=== PATIENT | female | born 1950 | race Caucasian/White ===

== ENCOUNTER 2018-01-11 15:15 | Outpatient (RCR) | payer MEDICARE, OTHER, SELFPAY ==
--- NOTE | 2017-11-23 16:53 | PT.OTN ---
Current Diagnoses Stiffness of right knee, not elsewhere classified (11/23/17) Other abnormalities of gait and mobility (11/23/17) Weakness (11/23/17) Unspecified fracture of shaft of unspecified tibia, subsequent encounter for closed fracture with routine healing (11/23/17) Other specified postprocedural states (11/23/17) Transition note: On November 17, 2017 our therapy services consisting of Speech, Occupational, and Physical Therapy transitioned from the [employer] electronic documentation system to a new [employer] electronic documentation system.?? All documentation prior to November 17 can be found under [employer] saved data. From November 17 forward all medical record documentation will be in [employer] 6.1.
--- NOTE | 2017-11-23 17:59 | PT.OTN ---
Current Diagnoses Stiffness of right knee, not elsewhere classified (11/23/17) Other abnormalities of gait and mobility (11/23/17) Weakness (11/23/17) Unspecified fracture of shaft of unspecified tibia, subsequent encounter for closed fracture with routine healing (11/23/17) Other specified postprocedural states (11/23/17) Physical Therapy Treatment Note PT-OP-A Visit Information Start: 11/23/17 17:44 Freq: Status: Active Protocol: Activity Type Activity Date Activity User E-Sign Co-Sign Detail Recorded Client Recorded Date Recorded By Document 11/23/17 15:15 [facility] [id number] 11/23/17 17:59 [facility] 11/23/17 15:15 Out-Patient Physical Therapy Visit Information [Visit Information] -Visit Type Treatment Note -Visit Start Time 15:15 -Visit Stop Time 16:00 -Total Visit Minutes 45 -Visit Number 4 -Number of PATIENT SERVICES CLERK Visits 0 [Evaluation Information] -Evaluation Date 11/09/17 PT-OP-C Subjective Start: 11/23/17 17:44 Freq: Status: Active Protocol: Activity Type Activity Date Activity User E-Sign Co-Sign Detail Recorded Client Recorded Date Recorded By Document 11/23/17 15:15 [facility] [id number] 11/23/17 17:59 [facility] 11/23/17 15:15 OP-PT Subjective [Patient Comments] -Patient Comments I'm getting a little better, I was even able to sit upright in the backseat on the way over here. Up until now, I've been laying across the seat because my knee couldn't bend far enough. -Patient Reported Progress Improving PT-OP-Q Treatments Start: 11/23/17 17:44 Freq: Status: Active Protocol: Activity Type Activity Date Activity User E-Sign Co-Sign Detail Recorded Client Recorded Date Recorded By Document 11/23/17 15:15 [facility] [id number] 11/23/17 17:59 [facility] 11/23/17 15:15 Cardio Equipment [Recumbent Bicycle] -Duration (Minutes) 5 -Resistance 0 -Seat Position 4 Therapeutic Exercises [Supine Exercises] 4 -Supine Exercise Name Knee unilateral flex/ext with foot on ball -Side right -Equipment Used Strap for overpressure 3 -Supine Exercise Name SLR -Side right -Resistance 2# -Reps/Minutes x10 2 -Supine Exercise Name SAQ -Side right -Resistance 2# -Reps/Minutes x10 1 -Supine Exercise Name Heel Slides on wall -Side right -Reps/Minutes 5 min [Sidelying Exercises] 1 -Sidelying Exercise Name SLR - Abduction -Side right -Resistance 2# -Reps/Minutes x10 [Sitting Exercises] 4 -Sitting Exercise Name Seated heel slides (HS curl /c T-band resistance) -Side right -Resistance Lv 2 3 -Sitting Exercise Name Gastroc Towel stretch -Side right -Equipment Used Gait Belt 2 -Sitting Exercise Name 4-way ankle flexion /c T- band -Side right -Resistance Lv 3 1 -Sitting Exercise Name LAQ -Side right -Resistance 2# -Reps/Minutes x10 Manual Therapy Treatment [Manual Techniques] 1 -Type Manual ROM -Body Location R knee Flexion/ Extension -Body Position Supine -Reps/Duration 10 min PT-OP-T Assessment and Plan Start: 11/23/17 17:44 Freq: Status: Active Protocol: Activity Type Activity Date Activity User E-Sign Co-Sign Detail Recorded Client Recorded Date Recorded By Document 11/23/17 15:15 [facility] [id number] 11/23/17 17:59 [facility] 11/23/17 15:15 Physical Therapy Assessment [Rehab Potential] -Rehabilitation Potential Excellent [Impairments] -Impairments Activity Tolerance Functional Activities Functional Mobility Gait ROM Soft Tissue Mobility Strength [Progress Towards Goals] -Progress Towards Goals Progressing Toward Goals [Assessment Summary] -Assessment Pt continues to make excellent progress 4 weeks s/p injury. Pt's ROM has gone from 60 degrees active/64 degrees passive flexion at her initial evaluation to 96 AROM/108 PROM today. Pt will likely progress quickly upon being released to [facility]. Physical Therapy Plan [Frequency and Duration] -Frequency of Treatment 2x/Week -Plan of Care Start Date 11/09/17 -Plan of Care End Date 01/31/18 [Therapeutic Interventions] -Therapeutic Interventions Aquatic Therapy Balance Training Gait Training Home Exercise Program Joint Mobilizations Manual Therapy Neuromuscular Re-education Patient/ Caregiver Education Soft Tissue Mobilization Therapeutic Activities Therapeutic Exercises -Modalities Cold Pack/Ice Massage Electric Stimulation Hot Packs Ultrasound [Next Visit Focus/Plan] -Next Visit Plan Continued work on ROM and strengthening until cleared for weightbearing
--- NOTE | 2017-11-30 15:39 | PT.OTN ---
Current Diagnoses Stiffness of right knee, not elsewhere classified (11/30/17) Other abnormalities of gait and mobility (11/30/17) Weakness (11/30/17) Unspecified fracture of shaft of unspecified tibia, subsequent encounter for closed fracture with routine healing (11/30/17) Other specified postprocedural states (11/30/17) Physical Therapy Treatment Note PT-OP-A Visit Information Start: 11/23/17 17:44 Freq: Status: Active Protocol: Document 11/30/17 13:45 DCW (Rec: 11/30/17 15:39 DCW [id number]) Out-Patient Physical Therapy Visit Information Visit Information Visit Type Treatment Note Visit Start Time 13:45 Visit Stop Time 14:30 Total Visit Minutes 45 Visit Number 5 Number of REGASIFICATION PLANT OPERATOR Visits 0 Evaluation Information Evaluation Date 11/09/17 PT-OP-C Subjective Start: 11/23/17 17:44 Freq: Status: Active Protocol: Document 11/30/17 13:45 DCW (Rec: 11/30/17 15:39 DCW [id number]) OP-PT Subjective Patient Comments Patient Comments Pt has been feeling great with her current ROM in her knee, and is very happy with her progress so far. Patient Reported Progress Improving PT-OP-Q Treatments Start: 11/23/17 17:44 Freq: Status: Active Protocol: Document 11/30/17 13:45 DCW (Rec: 11/30/17 15:39 DCW [id number]) Cardio Equipment Recumbent Bicycle Duration (Minutes) 6 Resistance 0 Seat Position 3 Therapeutic Exercises Supine Exercises 3 Supine Exercise Name SLR Side right Resistance 4# Reps/Minutes x10 2 Supine Exercise Name SAQ Side right Resistance 4# Reps/Minutes x10 1 Supine Exercise Name Heel Slides on wall Side right Reps/Minutes 5 min Sidelying Exercises 1 Sidelying Exercise Name SLR - Abduction Side right Resistance 4# Reps/Minutes x10 Sitting Exercises 4 Sitting Exercise Name Seated heel slides (HS curl /c T-band resistance) Side right Resistance Lv 2 2 Sitting Exercise Name 4-way ankle flexion /c T-band Side right Resistance Lv 3 1 Sitting Exercise Name LAQ Side right Resistance 4# Reps/Minutes x10 Standing Exercises 1 Standing Exercise Name Standing Hamstring Curls Side right Resistance 4# Reps/Minutes x10 Manual Therapy Treatment Joint Mobilizations 1 Joint Right Knee Direction Anterior Grade III Body Position Supine Reps/Duration 5' Manual Techniques 1 Type Manual ROM Body Location R knee Flexion/Extension Body Position Supine Reps/Duration 5 min PT-OP-T Assessment and Plan Start: 11/23/17 17:44 Freq: Status: Active Protocol: Document 11/30/17 13:45 DCW (Rec: 11/30/17 15:39 DCW [id number]) Physical Therapy Assessment Rehab Potential Rehabilitation Potential Excellent Impairments Impairments Activity Tolerance Functional Activities Functional Mobility Gait ROM Soft Tissue Mobility Strength Progress Towards Goals Progress Towards Goals Progressing Toward Goals Assessment Summary Assessment Progressing very well, current knee flexion is 114 active/ 122 passive. Now waiting for clearance for weight-bearing exercises Physical Therapy Plan Frequency and Duration Frequency of Treatment 2x/Week Plan of Care Start Date 11/09/17 Plan of Care End Date 01/31/18 Therapeutic Interventions Therapeutic Interventions Aquatic Therapy Balance Training Gait Training Home Exercise Program Joint Mobilizations Manual Therapy Neuromuscular Re-education Patient/Caregiver Education Soft Tissue Mobilization Therapeutic Activities Therapeutic Exercises Modalities Cold Pack/Ice Massage Electric Stimulation Hot Packs Ultrasound Next Visit Focus/Plan Next Visit Plan Continued work on ROM and strengthening until cleared for weightbearing
--- NOTE | 2017-12-07 11:15 | PT.OTN ---
Current Diagnoses Stiffness of right knee, not elsewhere classified (12/07/17) Other abnormalities of gait and mobility (12/07/17) Weakness (12/07/17) Unspecified fracture of shaft of unspecified tibia, subsequent encounter for closed fracture with routine healing (12/07/17) Other specified postprocedural states (12/07/17) Physical Therapy Treatment Note PT-OP-A Visit Information Start: 11/23/17 17:44 Freq: Status: Active Protocol: Document 12/07/17 10:30 DCW (Rec: 12/07/17 11:15 DCW [id number]) Out-Patient Physical Therapy Visit Information Visit Information Visit Type Treatment Note Visit Start Time 10:30 Visit Stop Time 11:15 Total Visit Minutes 45 Visit Number 6 Number of POULTRY PROCESSING SUPERVISOR Visits 0 Evaluation Information Evaluation Date 11/09/17 PT-OP-C Subjective Start: 11/23/17 17:44 Freq: Status: Active Protocol: Document 12/07/17 10:30 DCW (Rec: 12/07/17 11:15 DCW [id number]) OP-PT Subjective Patient Comments Patient Comments Pt reports her knee is feeling pretty good at the moment, no new complaints. PT-OP-Q Treatments Start: 11/23/17 17:44 Freq: Status: Active Protocol: Document 12/07/17 10:30 DCW (Rec: 12/07/17 11:15 DCW [id number]) Cardio Equipment Recumbent Bicycle Duration (Minutes) 6 Resistance 2 Seat Position 3 Therapeutic Exercises Supine Exercises 4 Supine Exercise Name Knee unilateral flex/ext with foot on ball vs Resistance Side right Resistance Lv 2 Equipment Used T-band Reps/Minutes x20 3 Supine Exercise Name SLR Side right Resistance 4# Reps/Minutes x20 2 Supine Exercise Name SAQ Side right Resistance 4# Reps/Minutes x20 1 Supine Exercise Name Heel Slides on wall Side right Reps/Minutes 5 min Sidelying Exercises 1 Sidelying Exercise Name SLR - Abduction Side right Resistance 4# Reps/Minutes x20 Sitting Exercises 4 Sitting Exercise Name Seated heel slides (HS curl /c T-band resistance) Side right Resistance Lv 2 1 Sitting Exercise Name LAQ Side right Resistance 4# Reps/Minutes x20 Standing Exercises 1 Standing Exercise Name Standing Hamstring Curls Side right Resistance 4# Reps/Minutes x20 Gait Training Gait Activity 1 Description NWB Gait practice Device Used FWW Level of Assistance SBA Surface Flat Distance/Duration 80' Manual Therapy Treatment Joint Mobilizations 1 Joint Right Knee Direction Anterior Grade III Body Position Supine Reps/Duration 5' Manual Techniques 1 Type Manual ROM Body Location R knee Flexion/Extension Body Position Supine Reps/Duration 5 min PT-OP-T Assessment and Plan Start: 11/23/17 17:44 Freq: Status: Active Protocol: Document 12/07/17 10:30 DCW (Rec: 12/07/17 11:15 DCW [id number]) Physical Therapy Assessment Rehab Potential Rehabilitation Potential Excellent Impairments Impairments Activity Tolerance Functional Activities Functional Mobility Gait ROM Soft Tissue Mobility Strength Progress Towards Goals Progress Towards Goals Progressing Toward Goals Assessment Summary Assessment Once again, pt displayed excellent ROM gains, knee flexion AROM 124/PROM 132. Pt seeing surgeon tomorrow, hopeful that she is cleared for some weightbearing. Physical Therapy Plan Frequency and Duration Frequency of Treatment 2x/Week Plan of Care Start Date 11/09/17 Plan of Care End Date 01/31/18 Therapeutic Interventions Therapeutic Interventions Aquatic Therapy Balance Training Gait Training Home Exercise Program Joint Mobilizations Manual Therapy Neuromuscular Re-education Patient/Caregiver Education Soft Tissue Mobilization Therapeutic Activities Therapeutic Exercises Modalities Cold Pack/Ice Massage Electric Stimulation Hot Packs Ultrasound Next Visit Focus/Plan Next Visit Plan Addition of weight-bearing exercises when cleared by surgeon
--- NOTE | 2017-12-15 17:15 | PT.OTN ---
Current Diagnoses Stiffness of right knee, not elsewhere classified (12/15/17) Other abnormalities of gait and mobility (12/15/17) Weakness (12/15/17) Unspecified fracture of shaft of unspecified tibia, subsequent encounter for closed fracture with routine healing (12/15/17) Other specified postprocedural states (12/15/17) Physical Therapy Treatment Note PT-OP-A Visit Information Start: 11/23/17 17:44 Freq: Status: Active Protocol: Document 12/15/17 15:15 DCW (Rec: 12/15/17 17:15 DCW [id number]) Out-Patient Physical Therapy Visit Information Visit Information Visit Type Treatment Note Visit Start Time 15:15 Visit Stop Time 15:55 Total Visit Minutes 40 Visit Number 7 Number of BELT SPLICER Visits 0 Evaluation Information Evaluation Date 11/09/17 PT-OP-C Subjective Start: 11/23/17 17:44 Freq: Status: Active Protocol: Document 12/15/17 15:15 DCW (Rec: 12/15/17 17:15 DCW [id number]) OP-PT Subjective Patient Comments Patient Comments Reporting on her return appointment with her surgeon last week, pt notes she was told she had to wait another 4 weeks (from 12/08/17), and was then cleared for 50% WB. Patient Reported Progress Improving PT-OP-Q Treatments Start: 11/23/17 17:44 Freq: Status: Active Protocol: Document 12/15/17 15:15 DCW (Rec: 12/15/17 17:15 DCW [id number]) Cardio Equipment Recumbent Bicycle Duration (Minutes) 5 Resistance 4 Seat Position 3 Therapeutic Exercises Supine Exercises 4 Supine Exercise Name Knee unilateral flex/ext with foot on ball vs Resistance Side right Resistance Lv 3 Equipment Used T-band Reps/Minutes x20 3 Supine Exercise Name SLR Side right Resistance 4# Reps/Minutes x20 2 Supine Exercise Name SAQ Side right Resistance 4# Reps/Minutes x20 1 Supine Exercise Name Heel Slides on wall Side right Reps/Minutes 5 min Sidelying Exercises 1 Sidelying Exercise Name SLR - Abduction Side right Resistance 4# Reps/Minutes x20 Sitting Exercises 4 Sitting Exercise Name Seated heel slides (HS curl /c T-band resistance) Side right Resistance Lv 3 1 Sitting Exercise Name LAQ Side right Resistance 4# Reps/Minutes x20 Standing Exercises 1 Standing Exercise Name Standing Hamstring Curls Side right Resistance 4# Reps/Minutes x20 Manual Therapy Treatment Joint Mobilizations 1 Joint Right Knee Direction Anterior Grade III Body Position Supine Reps/Duration 5' Manual Techniques 1 Type Manual ROM Body Location R knee Flexion/Extension Body Position Supine Reps/Duration 5 min PT-OP-T Assessment and Plan Start: 11/23/17 17:44 Freq: Status: Active Protocol: Document 12/15/17 15:15 DCW (Rec: 12/15/17 17:15 DCW [id number]) Physical Therapy Assessment Rehab Potential Rehabilitation Potential Excellent Impairments Impairments Activity Tolerance Functional Activities Functional Mobility Gait ROM Soft Tissue Mobility Strength Progress Towards Goals Progress Towards Goals Progressing Toward Goals Assessment Summary Assessment Pt ROM flexion approaching WNL , AROM 128/PROM 140. Increased activity will come in three weeks when cleared for weight bearing activities. Physical Therapy Plan Frequency and Duration Frequency of Treatment 2x/Week Plan of Care Start Date 11/09/17 Plan of Care End Date 01/31/18 Therapeutic Interventions Therapeutic Interventions Aquatic Therapy Balance Training Gait Training Home Exercise Program Joint Mobilizations Manual Therapy Neuromuscular Re-education Patient/Caregiver Education Soft Tissue Mobilization Therapeutic Activities Therapeutic Exercises Modalities Cold Pack/Ice Massage Electric Stimulation Hot Packs Ultrasound Next Visit Focus/Plan Next Note Type Treatment Note Next Visit Plan Addition of weight-bearing exercises 01/05/18 Please Sign and Return: I have reviewed this Plan of Care and certify that the skilled therapy services above are required to meet the patient???s needs. Physician Signature Date Printed Name and Credentials Clinical Instructor Signature Printed Name and Credentials
--- NOTE | 2017-12-22 14:25 | PT.OTN ---
Current Diagnoses Stiffness of right knee, not elsewhere classified (12/22/17) Other abnormalities of gait and mobility (12/22/17) Weakness (12/22/17) Unspecified fracture of shaft of unspecified tibia, subsequent encounter for closed fracture with routine healing (12/22/17) Other specified postprocedural states (12/22/17) Physical Therapy Treatment Note PT-OP-A Visit Information Start: 11/23/17 17:44 Freq: Status: Active Protocol: Document 12/22/17 13:45 DCW (Rec: 12/22/17 14:25 DCW [id number]) Out-Patient Physical Therapy Visit Information Visit Information Visit Type Treatment Note Visit Start Time 13:45 Visit Stop Time 14:30 Total Visit Minutes 40 Visit Number 8 Number of OVERLAY OPERATOR Visits 0 Evaluation Information Evaluation Date 11/09/17 PT-OP-C Subjective Start: 11/23/17 17:44 Freq: Status: Active Protocol: Document 12/22/17 13:45 DCW (Rec: 12/22/17 14:25 DCW [id number]) OP-PT Subjective Patient Comments Patient Comments Pt reports she has been a little sore since her last visit, likely due to measuring PROM of her affected leg. Patient Reported Progress Improving PT-OP-Q Treatments Start: 11/23/17 17:44 Freq: Status: Active Protocol: Document 12/22/17 13:45 DCW (Rec: 12/22/17 14:25 DCW [id number]) Cardio Equipment Recumbent Bicycle Duration (Minutes) 6 Resistance 4 Seat Position 2 Therapeutic Exercises Supine Exercises 4 Supine Exercise Name Knee unilateral flex/ext with foot on ball vs Resistance Side right Resistance Lv 3 Equipment Used T-band Reps/Minutes x20 3 Supine Exercise Name SLR Side right Resistance 5# Reps/Minutes x20 2 Supine Exercise Name SAQ Side right Resistance 5# Reps/Minutes x20 1 Supine Exercise Name Heel Slides on wall Side right Resistance 5# Reps/Minutes 5 min Sidelying Exercises 1 Sidelying Exercise Name SLR - Abduction Side right Resistance 4# Reps/Minutes x20 Sitting Exercises 4 Sitting Exercise Name Seated heel slides (HS curl /c T-band resistance) Side right Resistance Lv 3 1 Sitting Exercise Name LAQ Side bilateral Resistance 5# Reps/Minutes x20 Standing Exercises 1 Standing Exercise Name Standing Hamstring Curls Side right Resistance 5# Reps/Minutes x20 Manual Therapy Treatment Joint Mobilizations 1 Joint Right Knee Direction Anterior Grade III Body Position Supine Reps/Duration 5' Manual Techniques 1 Type Manual ROM Body Location R knee Flexion/Extension Body Position Supine Reps/Duration 5 min PT-OP-T Assessment and Plan Start: 11/23/17 17:44 Freq: Status: Active Protocol: Document 12/22/17 13:45 DCW (Rec: 12/22/17 14:25 DCW [id number]) Physical Therapy Assessment Rehab Potential Rehabilitation Potential Excellent Impairments Impairments Activity Tolerance Functional Activities Functional Mobility Gait ROM Soft Tissue Mobility Strength Progress Towards Goals Progress Towards Goals Progressing Toward Goals Assessment Summary Assessment Pt will be on vacation next week, and upon returning, should be cleared for 50% weight-bearing Physical Therapy Plan Frequency and Duration Frequency of Treatment 2x/Week Plan of Care Start Date 11/09/17 Plan of Care End Date 01/31/18 Therapeutic Interventions Therapeutic Interventions Aquatic Therapy Balance Training Gait Training Home Exercise Program Joint Mobilizations Manual Therapy Neuromuscular Re-education Patient/Caregiver Education Soft Tissue Mobilization Therapeutic Activities Therapeutic Exercises Modalities Cold Pack/Ice Massage Electric Stimulation Hot Packs Ultrasound Next Visit Focus/Plan Next Note Type Treatment Note Next Visit Plan Addition of weight-bearing exercises 01/05/18
--- NOTE | 2018-01-06 15:53 | PT.OTN ---
Current Diagnoses Stiffness of right knee, not elsewhere classified (01/06/18) Other abnormalities of gait and mobility (01/06/18) Weakness (01/06/18) Unspecified fracture of shaft of right tibia, subsequent encounter for closed fracture with routine healing (01/06/18) Other specified postprocedural states (01/06/18) Physical Therapy Treatment Note PT-OP-A Visit Information Start: 11/23/17 17:44 Freq: Status: Active Protocol: Document 01/06/18 15:15 DCW (Rec: 01/06/18 15:53 DCW [id number]) Out-Patient Physical Therapy Visit Information Visit Information Visit Type Treatment Note Visit Note Pt requests finishing 10 minutes early to get to another appointment Visit Start Time 15:15 Visit Stop Time 15:50 Total Visit Minutes 35 Visit Number 9 Number of IMPLEMENTATION DIRECTOR Visits 0 Evaluation Information Evaluation Date 11/09/17 PT-OP-C Subjective Start: 11/23/17 17:44 Freq: Status: Active Protocol: Document 01/06/18 15:15 DCW (Rec: 01/06/18 15:53 DCW [id number]) OP-PT Subjective Patient Comments Patient Comments Pt reports she has been cleared for 50% Weight bearing , advancing to 100% weight bearing over the next two weeks as tolerated. Patient Reported Progress Improving PT-OP-Q Treatments Start: 11/23/17 17:44 Freq: Status: Active Protocol: Document 01/06/18 15:15 DCW (Rec: 01/06/18 15:53 DCW [id number]) Cardio Equipment Recumbent Bicycle Duration (Minutes) 5 Resistance 4 Seat Position 2 Gym Equipment Cable Column (Body Solid) Leg Curl Resistance 30# Leg Extension Resistance 20# Shuttle Recovery Unilateral Squats Resistance 50# Shuttle Recovery Platform Stable Bilateral Squats Resistance 100# Shuttle Recovery Platform Unstable Therapeutic Exercises Standing Exercises 3 Standing Exercise Name Squats Side bilateral Equipment Used rail, chair 2 Standing Exercise Name Flexion stretch at step Side right Equipment Used Staircase Gait Training Gait Activity 3 Description Stair training Device Used rail, unilateral rail Distance/Duration 4 steps x3 2 Description 50% weight bearing training Device Used Single Crutch PT-OP-T Assessment and Plan Start: 11/23/17 17:44 Freq: Status: Active Protocol: Document 01/06/18 15:15 DCW (Rec: 01/06/18 15:53 RACHEL [id number]) Physical Therapy Assessment Rehab Potential Rehabilitation Potential Excellent Impairments Impairments Activity Tolerance Functional Activities Functional Mobility Gait ROM Soft Tissue Mobility Strength Progress Towards Goals Progress Towards Goals Progressing Toward Goals Assessment Summary Assessment Pt doing very well with the addition of weight bearing, no complaints of increased pain Physical Therapy Plan Frequency and Duration Frequency of Treatment 2x/Week Plan of Care Start Date 11/09/17 Plan of Care End Date 01/31/18 Therapeutic Interventions Therapeutic Interventions Aquatic Therapy Balance Training Gait Training Home Exercise Program Joint Mobilizations Manual Therapy Neuromuscular Re-education Patient/Caregiver Education Soft Tissue Mobilization Therapeutic Activities Therapeutic Exercises Modalities Cold Pack/Ice Massage Electric Stimulation Hot Packs Ultrasound Next Visit Focus/Plan Next Note Type Treatment Note Next Visit Plan Increase weightbearing as tolerated, additional weight- bearing exercises
--- NOTE | 2018-01-11 18:02 | PT.OTN ---
Current Diagnoses Stiffness of right knee, not elsewhere classified (01/11/18) Other abnormalities of gait and mobility (01/11/18) Weakness (01/11/18) Unspecified fracture of shaft of right tibia, subsequent encounter for closed fracture with routine healing (01/11/18) Other specified postprocedural states (01/11/18) Physical Therapy Treatment Note PT-OP-A Visit Information Start: 11/23/17 17:44 Freq: Status: Active Protocol: Document 01/11/18 15:15 DCW (Rec: 01/11/18 15:58 DCW [id number]) Out-Patient Physical Therapy Visit Information Visit Information Visit Type Discharge Summary Visit Start Time 15:15 Visit Stop Time 16:00 Total Visit Minutes 45 Visit Number 10 Number of SUGAR TRUCKER Visits 0 Evaluation Information Evaluation Date 11/09/17 PT-OP-B Current Condition Start: 01/11/18 17:52 Freq: Status: Active Protocol: Document 01/11/18 15:15 DCW (Rec: 01/11/18 18:02 DCW [id number]) Current Condition History of Current Condition History of Current Condition Please see pt's chart in therapy source for complete history and initial evaluation PT-OP-C Subjective Start: 11/23/17 17:44 Freq: Status: Active Protocol: Document 01/11/18 15:15 DCW (Rec: 01/11/18 15:58 DCW [id number]) OP-PT Subjective Patient Comments Patient Comments Pt reports she left her crutch in her car, and has been doing a little bit of walking with no assistive device Patient Reported Progress Improving PT-OP-K Range of Motion Start: 01/11/18 17:52 Freq: Status: Active Protocol: Document 01/11/18 15:15 DCW (Rec: 01/11/18 18:02 DCW [id number]) Knee Goniometric Range of Motion Knee Measured in Degrees Right Patient Position Supine Flexion Active (degrees) 128 Flexion Passive (degrees) 140 Extension Active (degrees) 0 Extension Passive (degrees) 0 Left Knee ROM WFL Yes PT-OP-M Strength Start: 01/11/18 17:52 Freq: Status: Active Protocol: Document 01/11/18 15:15 DCW (Rec: 01/11/18 18:02 DCW [id number]) Knee Strength Knee Manual Muscle Testing Right Flexion (S2) 4+ Good+ Extension (L3) 5 Normal Left Reason Not Measured WFL PT-OP-Q Treatments Start: 11/23/17 17:44 Freq: Status: Active Protocol: Document 01/11/18 15:15 DCW (Rec: 01/11/18 15:58 DCW [id number]) Cardio Equipment Recumbent Bicycle Duration (Minutes) 5 Resistance 4 Seat Position 2 Gym Equipment Shuttle Recovery Other- 1 Details Plyo Hopping - Single leg Resistance 12# Unilateral Squats Resistance 50# Shuttle Recovery Platform Stable Bilateral Squats Resistance 100# Shuttle Recovery Platform Unstable Shuttle Balance 1 Details Red - Wide JAYASHREE, Staggered Stance Therapeutic Ball 1 Exercise Details Wall squat with ball Ball Size/Color Blue - 45 cm Body Position Standing Therapeutic Exercises Standing Exercises 6 Standing Exercise Name right Equipment Used Black foam pad 5 Standing Exercise Name Squat at railing 4 Standing Exercise Name Lunge onto BOSU PT-OP-T Assessment and Plan Start: 11/23/17 17:44 Freq: Status: Active Protocol: Document 01/11/18 15:15 DCW (Rec: 01/11/18 18:02 DCW [id number]) Physical Therapy Assessment Rehab Potential Rehabilitation Potential Excellent Impairments Impairments Activity Tolerance Functional Activities Functional Mobility Gait ROM Soft Tissue Mobility Strength Goals Three Impairment Ambulation Short Term Goal (STG) Pt to ambulate 60' SBA /c FWW STG Duration Met Harp Maker Goal (LTG) Pt to ambulate community distances independently with no assistive device LTG Duration Met Two Impairment Edema Short Term Goal (STG) R girth measurements = L girth measurements STG Duration Met One Impairment ROM Short Term Goal (STG) Right knee flexion to 90? AROM /100? PROM STG Duration Met Harp Maker Goal (LTG) Right knee flexion to 120? AROM/135? PROM LTG Duration Met Progress Towards Goals Progress Towards Goals Goals Met Assessment Summary Assessment Pt arrived today with no assistive devices. Performed gait /s antalgic gait pattern. ROM and MMT all WNL. Pt has met all goals, and is appropriate for discharge at this time. Physical Therapy Plan Frequency and Duration Frequency of Treatment 2x/Week Plan of Care Start Date 11/09/17 Plan of Care End Date 01/31/18 Therapeutic Interventions Therapeutic Interventions Aquatic Therapy Balance Training Gait Training Home Exercise Program Joint Mobilizations Manual Therapy Neuromuscular Re-education Patient/Caregiver Education Soft Tissue Mobilization Therapeutic Activities Therapeutic Exercises Modalities Cold Pack/Ice Massage Electric Stimulation Hot Packs Ultrasound Discharge Physical Therapy Discharge Reasons Goals Met Next Visit Focus/Plan Next Note Type Discharge Summary
== END 2018-06-18 13:40 ==
LOC: PHYS 15:15
PROVIDERS: Family Provider Family Medicine; PCP Family Medicine; Visit Provider Family Medicine
DX: S82.201D Unspecified fracture of shaft of right tibia, subsequent encounter for closed fracture with routine healing (principal); M25.661 Stiffness of right knee, not elsewhere classified; R53.1 Weakness; R26.89 Other abnormalities of gait and mobility; Z98.890 Other specified postprocedural states
CPT/HCPCS: 97110; 97112; 97116; 97140